=== PATIENT | female | born 1950 | race African-American/Black ===

== ENCOUNTER 2017-05-30 04:44 | Emergency (ER) | payer SELFPAY ==
[~2017-05-30] VITALS: Ht 165.1 cm; Wt 77.3 kg
[2017-05-30 06:06] VITALS: BP 148/74
[2017-05-30] MEDS ORDERED: AMOX TR/POT CLAV 875 MG/125 MG TABLET PO ONE (06:45)
[2017-05-30] MEDS ORDERED: TraMADol HCL 50 MG TABLET PO ONE (06:45)
== END 2017-05-30 07:08 | disposition home or self-care (01) ==
LOC: EMS 04:45
DX: H66.91 Otitis media, unspecified, right ear (principal)
CPT/HCPCS: 99283